=== PATIENT | female | born 1965 | race Caucasian/White ===

== ENCOUNTER 2017-10-16 02:52 | Emergency (ER) | payer BC ==
[~2017-10-16] VITALS: Ht 162.6 cm; Wt 117.9 kg
[~2017-10-16 02:52] MED LIST: ALPRAZOLAM 0.50.5 M1 PO; BACLOFEN; COPAXONE20 M1 SC; DESYREL; IBUPROFEN 200200 M1 PO; LEVORA-281 EACH PO; LORTAB 5 MG/5001 TAB PO; NORCO 5-325 TA1 EACH PO; PHENERGAN 25 MG25 M1 PO; PROVIGIL 200 M200 M1 PO; VENLAFAXIN75 MG/1 T2 PO; ZOFRAN ODT4 MG PO; ZOLOFT; [UNRECOGNIZED DRUG - OTHER]
[2017-10-16] MEDS ORDERED: ZANAFLEX2 MG (03:08)
[2017-10-16] MEDS ORDERED: NEURONTIN 300300 M1 (03:08)
[2017-10-16 03:39] LABS: ABSOLUTE BASOPHILS 0.1 thou/uL (0.0-0.2); ABSOLUTE EOSINOPHILS 0.2 thou/uL (0.0-0.7); ABSOLUTE MONOCYTES 0.8 thou/uL (0.0-1.2); ABSOLUTE NEUTROPHILS 5.8 thou/uL (1.6-8.1); BASOPHILS 0.6 %; EOSINOPHILS 2.4 %; HEMATOCRIT 36.8 % (37.0-47.0); HEMOGLOBIN 12.3 gm/dL (12.0-15.0); LYMPHOCYTES 29.9 %; MCH 29.3 pg (26.0-34.0); MCHC 33.3 g/dL (28.0-37.0); MCV 88.1 fL (80.0-100.0); MONOCYTES 8.4 %; MPV 7.6 fl. (7.2-11.1); NUCLEATED RBCS 0 /100WBC; PLATELET COUNT* 279 thou/uL (150-400); POLYS 58.7 %; RBC 4.18 mil/uL (4.20-5.00); RDW-CV 13.8 % (10.5-14.5); WBC 9.9 thou/uL (4.0-11.0)
[2017-10-16 03:58] LABS: CALCIUM 8.7 mg/dL (8.5-10.1); CREATININE 1.1 mg/dL (0.6-1.3); POTASSIUM 3.9 mmol/L (3.5-5.1)
[2017-10-16 04:02] LABS: ALBUMIN 3.2 g/dL (3.4-5.0); TOTAL BILIRUBIN 0.3 mg/dL (<0.1-1.0); TOTAL PROTEIN 6.7 g/dL (6.4-8.2)
[2017-10-16 04:34] LABS: URINE BILIRUBIN NEGATIVE (Negative); URINE BLOOD TRACE (Negative); URINE CLARITY CLEAR; URINE COLOR YELLOW; URINE GLUCOSE-RANDOM NEGATIVE (Negative); URINE KETONES NEGATIVE (Negative); URINE LEUKOCYTES-REFLEX NEGATIVE (Negative); URINE NITRITE-REFLEX NEGATIVE (Negative); URINE PROTEIN NEGATIVE (Negative); URINE SPECIFIC GRAVITY 1.015 (1.005-1.030); URINE UROBILINOGEN 0.2 E.U./dl (0.2-1.0)
[2017-10-16] MEDS ORDERED: NORCO 5-325 TA1 EACH PO (05:27)
[2017-10-16] MEDS ORDERED: FLOMAX0.4 MG PO (05:27)
[2017-10-16] MEDS ORDERED: ZOFRAN ODT4 MG PO (05:27)
[2017-10-16 06:05] VITALS: BP 109/65
== END 2017-10-16 06:07 | disposition home or self-care (01) ==
LOC: M.ERS 02:52
PROVIDERS: Personal Emergency Response Attendant
DX: N20.1 Calculus of ureter (principal); G35 Multiple sclerosis